=== PATIENT | male | born 1945 | race Caucasian/White ===

== ENCOUNTER 2019-09-28 09:25 | Emergency (ER) | payer OTHER ==
[2019-09-28 09:39] VITALS: TEMP 97.9
[2019-09-28] MEDS ORDERED: SODIUM CHLORIDE 0.9% (FLUSH) 10 ML SYG IV PRN (09:59)
--- NOTE | 2019-09-28 10:02 | ED.PDOC ---
History of Present Illness - General Chief Complaint: Cardiovascular Problem Stated Complaint: Low blood pressure, low blood sugar Time Seen by Provider: 09/28/19 09:59 - History of Present Illness Initial Comments: c/o feeling weak since 3 days , started having upper back pain radiating to neck this morning for 20 mins , checked blood sugar was 80 and blood pressures were in 80/50 Pt blood pressure and blood sugar improved when he came to the ER Allergies/Adverse Reactions: Allergies Penicillins Allergy (Verified 03/21/18 11:20) Rash Home Medications: Ambulatory Orders [id number]-[id number] [Fioricet] 1 ea PO Q8H PRN #21 tab 03/21/18 Atorvastatin Calcium 40 mg PO DAILY 03/21/18 Bupropion HCl [Bupropion HCl Sr] 300 mg PO DAILY 03/21/18 Carvedilol 25 mg PO BID 03/21/18 Chlorthalidone 12.5 mg PO DAILY 03/21/18 Cyclobenzaprine HCl [Flexeril] 5 mg PO TID PRN #30 tab 03/21/18 Docusate Sodium [Colace Cap] 100 mg PO DAILY PRN 03/21/18 Losartan Potassium 100 mg PO DAILY 03/21/18 Nifedipine [Nifedipine ER] 90 mg PO DAILY 03/21/18 Ranitidine HCl 150 mg PO BID 03/21/18 Trazodone HCl [Trazodone Hydrochloride] 75 mg PO BEDTIME 03/21/18 predniSONE [Prednisone] 20 mg PO DAILY #5 tab 03/21/18 Review of Systems - Review of Systems Constitutional: States: weakness EENTM: States: no symptoms reported Cardiology: States: no symptoms reported Gastrointestinal/Abdominal: States: no symptoms reported Genitourinary: States: no symptoms reported Musculoskeletal: States: no symptoms reported Skin: States: no symptoms reported Neurological: States: no symptoms reported Endocrine: States: no symptoms reported Hematologic/Lymphatic: States: no symptoms reported Past Medical History (General) - Patient Medical History Hx Stroke: No Hx Cardiac Disorders: Yes - Hypercholesterolemia Hx Congestive Heart Failure: No Hx Hypertension: Yes Hx Thyroid Disease: Yes Hx Diabetes: Yes Hx Gastroesophageal Reflux: Yes Hx MRSA: No Surgical History: tonsillectomy, other - Vaccination History Hx Influenza Vaccination: Yes - 2019 Hx Pneumococcal Vaccination: Yes - Social History Hx Tobacco Use: No Hx Alcohol Use: No Family Medical History - Family History Father Living Status: Hx Cardiac Disease: Yes Physical Exam - Physical Exam General Appearance: Alert, Comfortable Eyes, Ears, Nose, Throat Exam: PERRL/EOMI, normal ENT inspection, TMs normal Neck: non-tender, full range of motion, supple, normal inspection Respiratory: chest non-tender, lungs clear, normal breath sounds, no respiratory distress, no accessory muscle use Cardiovascular/Chest: regular rate, rhythm Extremity: normal range of motion, non-tender, normal inspection, no pedal edema Neurologic: no motor/sensory deficits, alert, normal mood/affect, oriented x 3 Skin Exam: normal color Lymphatic: no adenopathy Progress - Progress Progress: 09/30/19 23:01 During the visit saw the pt multiple time answer all the concern of the pt , reviewed labs and X-ray with the pt. Told the pt that if symptoms gets worse , please come back to [facility] [place] BP meds and dose of insulin, pt bp stated rising above 140/90 restart the meds and monitor bp multiple times in a day atleast twice a day Check blood sugar also multiple times Follow up PCP as soon as possible - Results/Orders Results/Orders: Laboratory Results WBC 6.5 K/mm3 (4.8-10.8) 09/28/19 10: RBC 4.53 M/mm3 (4.70-6.10) L 09/28/19 10:26 Hgb 13.2 gm/dL (14.0-18.0) L 09/28/19 10:26 Hct 39.7 % (42.0-52.0) L 09/28/19 10:26 MCV 87.7 fl (80.0-94.0) 09/28/19 10:26 MCH 29.2 pg (27.0-31.0) 09/28/19 10:26 MCHC 33.3 g/dL (33.0-37.0) 09/28/19 10: RDW 14.2 % (11.5-14.5) 09/28/19 10: Plt Count 177 K/mm3 (130-400) 09/28/19 10:26 MPV 7.1 fl (7.40-10.4) L 09/28/19 10:26 Absolute Neuts (auto) 3.50 K/uL (1.8-6.8) 09/28/19 10:26 Absolute Lymphs (auto) 2.00 K/uL (1.0-3.4) 09/28/19 10:26 Absolute Monos (auto) 0.70 K/uL (0.2-0.8) 09/28/19 10:26 Absolute Eos (auto) 0.20 K/uL (0.0-0.4) 09/28/19 10:26 Absolute Basos (auto) 0.10 K/uL (0.0-0.1) 09/28/19 10:26 Neutrophils % 54.4 % (42.0-78.0) 09/28/19 10:26 Lymphocytes % 31.4 % (20.0-50.0) 09/28/19 10: Monocytes % 11.0 % (2.0-9.0) H 09/28/19 10: Eosinophils % 2.4 % (1.0-5.0) 09/28/19 10: Basophils % 0.8 % (0.0-2.0) 09/28/19 10:26 PT 10.1 SECONDS (9.0-10.9) 09/28/19 10: INR 1.02 (0.9-1.15) 09/28/19 10:26 PTT (SP) 28.8 SECONDS (21.8-31.6) 09/28/19 10:26 D-Dimer, Quantitative 199 ng/ml (131-400) 09/28/19 10:00 Sodium 135 mmol/L (135-145) 09/28/19 10:26 Potassium 3.6 mmol/L (3.6-5.0) 09/28/19 10:26 Chloride 100 mmol/L (101-111) L 09/28/19 10:26 Carbon Dioxide 22 mmol/L (21-31) 09/28/19 10:26 Anion Gap 16.6 (12-18) 09/28/19 10:26 BUN 11 mg/dL (7-18) 09/28/19 10:26 Creatinine 1.17 mg/dL (0.6-1.3) 09/28/19 10:26 BUN/Creatinine Ratio 9.4 (10-20) L 09/28/19 10:26 Random Glucose 272 mg/dL (70-105) H 09/28/19 10:26 Serum Osmolality 279.1 mOsm/L (275-295) 09/28/19 10:26 Calcium 9.2 mg/dL (8.4-10.2) 09/28/19 10:26 Magnesium 1.7 mg/dL (1.8-2.5) L 09/28/19 10:26 Total Bilirubin 0.5 mg/dL (0.2-1.0) 09/28/19 10:26 Direct Bilirubin < 0.1 mg/dL (0-0.2) 09/28/19 10:26 Indirect Bilirubin 0.4 mg/dL (0.2-0.8) 09/28/19 10:26 AST 19 IU/L (10-42) 09/28/19 10:26 ALT 26 IU/L (10-60) 09/28/19 10:26 Alkaline Phosphatase 76 IU/L (42-121) 09/28/19 10:26 Creatine Kinase 47 IU/L (38-174) 09/28/19 10:26 CK-MB (CK-2) 1.2 ng/mL (0.0-4.4) 09/28/19 10:26 CK-MB (CK-2) % Not Reportable 09/28/19 10:26 Troponin I < 0.02 ng/mL (0.01-0.05) 09/28/19 12:30 B-Natriuretic Peptide 50.6 pg/ml (0-100) 09/28/19 10:26 Serum Total Protein 6.4 gm/dL (6.4-8.2) 09/28/19 10:26 Albumin 3.4 g/dl (3.2-5.5) 09/28/19 10:26 - EKG/XRAY/CT EKG: Emil, Sinus Departure - Departure Clinical Impression: Upper back pain, Hypotension, Hypoglycemia Time of Disposition: 13:04 Disposition: Discharge to Home or Self Care Condition: Good Departure Forms: ED Discharge - Pt. Copy, Patient Portal Self Enrollment Instructions: DI for Chest Pain Diet: resume usual diet Activity: increase activity as tolerated, walking as tolerated Home Medications: Ambulatory Orders Ekhlqpvuoofkd-Itxh-Vksvcfdskr [Fioricet] 1 ea PO Q8H PRN #21 tab 03/21/18 Atorvastatin Calcium 40 mg PO DAILY 03/21/18 Bupropion HCl [Bupropion HCl Sr] 300 mg PO DAILY 03/21/18 Carvedilol 25 mg PO BID 03/21/18 Chlorthalidone 12.5 mg PO DAILY 03/21/18 Cyclobenzaprine HCl [Flexeril] 5 mg PO TID PRN #30 tab 03/21/18 Docusate Sodium [Colace Cap] 100 mg PO DAILY PRN 03/21/18 Losartan Potassium 100 mg PO DAILY 03/21/18 Nifedipine [Nifedipine ER] 90 mg PO DAILY 03/21/18 Ranitidine HCl 150 mg PO BID 03/21/18 Trazodone HCl [Trazodone Hydrochloride] 75 mg PO BEDTIME 03/21/18 predniSONE [Prednisone] 20 mg PO DAILY #5 tab 03/21/18 Additional Instructions: Follow up PCP in 1-2 days , discuss with him for sugar management Please lower the dose of insulin as discussed Monitor blood sugar atleast twice Monitor blood pressure atleast two times a day Please hold the blood pressure medicines for today and if gets up to 140/90 restart the meds Please come back to ER if symptoms comes back or has low sugar or blood pressure or any other medical problem
[2019-09-28] MEDS ORDERED: SODIUM CHLORIDE 0.9% 1000ML 1,000 ML IVS ONE (10:40)
--- NOTE | 2019-09-28 10:43 | RAD ---
EXAM DESCRIPTION: Chest, x-ray 1 View CLINICAL HISTORY: sob COMPARISON: None FINDINGS: Cardiac silhouette is within normal limits. Aorta is tortuous. Tubular-like opacities at the right cardiophrenic angle could be secondary to underlying bronchiectasis versus atelectasis. Costophrenic angles are sharp.. There is no acute osseous process visualized. IMPRESSION: Tubular-like opacities at the right cardiophrenic angle could be secondary to underlying bronchiectasis versus atelectasis. Electronically signed by: Cesar Smith MD 09/28/2019 10:42 AM [facility]
[2019-09-28 13:28] VITALS: BP 131/78; O2SAT 96
== END 2019-09-28 13:20 | disposition home or self-care (01) ==
LOC: ER 09:25
DX: E11.649 Type 2 diabetes mellitus with hypoglycemia without coma (principal); I95.9 Hypotension, unspecified; M54.6 Pain in thoracic spine; I10 Essential (primary) hypertension; E78.00 Pure hypercholesterolemia, unspecified; E07.9 Disorder of thyroid, unspecified; K21.9 Gastro-esophageal reflux disease without esophagitis; Z79.899 Other long term (current) drug therapy; Z88.0 Allergy status to penicillin

== ENCOUNTER → 2020-06-02 | Outpatient (CLI) | payer OTHER | LOC: YCFC.O 11:59 | PROVIDERS: ATTEND Family Medicine | DX: Z79.899 Other long term (current) drug therapy (principal); E11.9 Type 2 diabetes mellitus without complications; I10 Essential (primary) hypertension; E78.5 Hyperlipidemia, unspecified; E03.9 Hypothyroidism, unspecified; Z12.5 Encounter for screening for malignant neoplasm of prostate ==